=== PATIENT | female | born 1950 ===

== ENCOUNTER 2024-05-29 20:03 | Inpatient (IN) | payer MEDICARE, BC ==
[~2024-05-29] VITALS: Ht 157.5 cm; Wt 45.8 kg
[2024-05-29] MEDS ORDERED: OLAN2.5T3 PO (21:51)
[2024-05-29] MEDS ORDERED: SENN-261 PO (21:51)
[2024-05-29] MEDS ORDERED: HEPA500034 SUBCUT (21:51)
[2024-05-29] MEDS ORDERED: MAG30ORA PO (21:51)
[2024-05-29] MEDS ORDERED: CLON0.1T PO (21:51)
[2024-05-29] MEDS ORDERED: AMLO10TA59 PO (21:51)
[2024-05-29] MEDS ORDERED: MULT-1275 PO (21:51)
[2024-05-29] MEDS ORDERED: FAMO-132 PO (21:51)
[2024-05-29] MEDS ORDERED: ACET650T10 PO (21:51)
[2024-05-29] MEDS ORDERED: MAG HYDROX/AL HYDROX/SIMETH 30 ML LIQUID UDC PO PRN ×2 (22:30→23:00)
[2024-05-29] MEDS ORDERED: CLONIDINE HCL 0.1 MG TABLET PO PRN (22:30)
[2024-05-29] MEDS ORDERED: SENNOSIDES 1 TABLET PO PRN (22:30)
[2024-05-29] MEDS ORDERED: ACETAMINOPHEN 325 MG TABLET PO PRN ×2 (23:00→23:30)
[2024-05-29] MEDS ORDERED: CLONAZEPAM 0.5 MG TABLET PO PRN (23:00)
[2024-05-29] MEDS ORDERED: MAGNESIUM HYDROXIDE 30 ML LIQUID UDC PO PRN (23:00)
[2024-05-29 23:30] VITALS: BP 150/73; TEMP 98.1; O2SAT 98
[2024-05-30 07:39] LABS: ALBUMIN 3.3 g/dL (3.4-5.0); BILIRUBIN,TOTAL 0.4 mg/dL (0.2-1.0); CALCIUM 9.6 mg/dL (8.5-10.1); CREATININE 1.1 mg/dL (0.6-1.3); POTASSIUM 3.9 mmol/L (3.5-5.1); TOTAL PROTEIN, SERUM 6.8 g/dL (6.4-8.2)
[2024-05-30 07:52] VITALS: BP 147/89; TEMP 97.4; O2SAT 98
[2024-05-30] MEDS: MULTIVITAMINS,THERAPEUTIC TABLET PO SCH (08:55)
[2024-05-30] MEDS: AMLODIPINE 10 MG TABLET PO SCH (08:55)
[2024-05-30] MEDS: FAMOTIDINE 20 MG TABLET PO SCH (08:55)
[2024-05-30] MEDS ORDERED: HEPARIN SODIUM,PORCINE 5,000 UNITS/ML VIAL SQ SCH (09:00)
[2024-05-30 16:19] VITALS: BP 128/60; TEMP 97.6; O2SAT 98
[2024-05-30] MEDS: ENSURE ENLIVE (VAN) 240 ML LIQUID PO SCH (17:44)
[2024-05-30 20:06] VITALS: BP 122/53; TEMP 97.8; O2SAT 96
[2024-05-30] MEDS: OLANZAPINE 2.5 MG TABLET PO SCH (21:03)
[2024-05-30] MEDS: MIRTAZAPINE 15 MG TABLET PO SCH (21:03)
[2024-05-30] MEDS: LORAZEPAM 0.5 MG TABLET PO PRN (21:52)
[2024-05-31 07:53] VITALS: BP 134/60; TEMP 98.2; O2SAT 96
[2024-05-31] MEDS: CALCITRIOL 0.25 MCG CAPSULE PO SCH (08:37)
[2024-05-31 16:45] VITALS: BP 135/61; TEMP 98.1; O2SAT 97
[2024-05-31 20:16] VITALS: BP 135/56; TEMP 98.2; O2SAT 98
[2024-06-01 07:47] LABS: *BILIRUBIN,URIN NEGATIVE (NEGATIVE); *BLOOD, URINE NEGATIVE (NEGATIVE); *CLARITY,URINE CLEAR (CLEAR); *COLOR,URINE YELLOW (YELLOW); *KETONES,URINE NEGATIVE (NEGATIVE); *PROTEIN,URINE 1+ (NEGATIVE); *UROBILINOGEN,URINE 0.2 E.U./dl (NORMAL); LEUKOCYTE ESTERASE ,URINE NEGATIVE (NEGATIVE); NITRITE, URINE NEGATIVE (NEGATIVE); PH,URINE 5.5 (5.0-8.0); UGLUCOSE NEGATIVE (NEGATIVE)
[2024-06-01 07:49] VITALS: BP 160/75; TEMP 98; O2SAT 96
[2024-06-01 08:17] LABS: BACTERIA,URINE FEW /HPF (NONE SEEN); RBC,URINE 0-3 /HPF (0-3); SQUAMOUS EPITHELIAL CELL,UR FEW /HPF (NONE SEEN)
[2024-06-01 15:55] VITALS: BP 143/69; TEMP 98; O2SAT 96
[2024-06-01 20:02] VITALS: BP 121/61; TEMP 98.1; O2SAT 96
[2024-06-01] MEDS: MIRTAZAPINE 15 MG TABLET PO SCH (20:53)
[2024-06-02 08:30] VITALS: BP 137/64; TEMP 98; O2SAT 98
[2024-06-02 15:28] VITALS: BP 143/62; TEMP 98; O2SAT 98
[2024-06-02 20:21] VITALS: BP 117/65; TEMP 98.1; O2SAT 97
[2024-06-03 07:55] VITALS: BP 134/64; TEMP 98; O2SAT 98
[2024-06-03 08:25] LABS: BASOPHILS % (AUTO) 0.6 % (0.0-2.0); EOSINOPHILS # (AUTO) 0.1 K/uL (0.0-0.7); EOSINOPHILS % (AUTO) 1.7 % (0.0-7.0); HEMATOCRIT 40.6 % (31.2-41.9); HEMOGLOBIN 13.2 g/dL (10.9-14.3); LYMPHOCYTES # (AUTO) 1.7 K/uL (0.8-4.8); LYMPHOCYTES % (AUTO) 21.8 % (20.5-51.5); MEAN CORPUSCULAR HEMOGLOBIN 27.9 uug (24.7-32.8); MEAN CORPUSCULAR HGB CONC 33 g/dL (32.3-35.6); MEAN CORPUSCULAR VOLUME 85.8 fL (75.5-95.3); MONOCYTES # (AUTO) 0.6 K/uL (0.1-1.30); MONOCYTES % (AUTO) 7.4 % (0.0-11.0); NEUTROPHILS # (AUTO) 5.3 K/uL (1.8-8.9); NEUTROPHILS % (AUTO) 68.5 % (38.5-71.5); PLATELET COUNT (AUTO) 363 K/uL (179-408); RED BLOOD CELL COUNT(AUTO) 4.73 MIL/uL (3.63-4.92); WHITE BLOOD COUNT (AUTO) 7.7 K/uL (3.8-11.8)
[2024-06-03 08:33] LABS: DIFFERENTIAL COMMENT 1
[2024-06-03 08:55] LABS: THYROID STIMULATING HORMONE 1.098 mIU/mL (0.358-3.740)
[2024-06-03 09:16] LABS: ALBUMIN 3.8 g/dL (3.4-5.0); BILIRUBIN,TOTAL 0.4 mg/dL (0.2-1.0); CALCIUM 10.3 mg/dL (8.5-10.1); CREATININE 1.3 mg/dL (0.6-1.3); MAGNESIUM 2.1 mg/dL (1.8-2.4); PHOSPHOROUS 3.8 mg/dL (2.5-4.9); POTASSIUM 3.6 mmol/L (3.5-5.1); TOTAL PROTEIN, SERUM 7.8 g/dL (6.4-8.2)
[2024-06-03 15:23] VITALS: BP 123/62; TEMP 98; O2SAT 98
[2024-06-03 20:17] VITALS: BP 130/64; TEMP 97.9; O2SAT 96
[2024-06-04 07:51] VITALS: BP 121/58; TEMP 97.6; O2SAT 97
[2024-06-04 16:00] VITALS: BP 121/64; TEMP 97.6; O2SAT 97
[2024-06-04 20:00] VITALS: BP 143/60; TEMP 98; O2SAT 97
[2024-06-05 08:07] VITALS: BP 137/70; TEMP 98; O2SAT 98
[2024-06-05] MEDS: BENZTROPINE MESYLATE 0.5 MG TABLET PO SCH (10:24)
[2024-06-05] MEDS ORDERED: diphenhydrAMINE 25 MG CAP PO PRN (11:45)
[2024-06-05 15:27] VITALS: BP 118/61; TEMP 98; O2SAT 98
[2024-06-06 08:29] VITALS: BP 135/72; TEMP 97.8; O2SAT 98
[2024-06-06 17:08] VITALS: BP 136/70; TEMP 97.8; O2SAT 97
[2024-06-06 23:43] VITALS: BP 140/63; TEMP 97.8; O2SAT 95
[2024-06-07 08:40] VITALS: BP 136/69; TEMP 98.4; O2SAT 97
[2024-06-07 10:34] LABS: ALBUMIN 3.7 g/dL (3.4-5.0); BILIRUBIN,TOTAL 0.4 mg/dL (0.2-1.0); CALCIUM 10.2 mg/dL (8.5-10.1); CREATININE 1.1 mg/dL (0.6-1.3); POTASSIUM 3.7 mmol/L (3.5-5.1); TOTAL PROTEIN, SERUM 7.4 g/dL (6.4-8.2)
[2024-06-07 16:03] VITALS: BP 154/70; TEMP 98; O2SAT 97
[2024-06-07 20:15] VITALS: BP 104/63; TEMP 98.1; O2SAT 95
[2024-06-08 07:52] VITALS: BP 135/68; TEMP 98.2; O2SAT 93
[2024-06-08 16:02] VITALS: BP 152/65; TEMP 97.6; O2SAT 100
[2024-06-08] MEDS: PROTEIN SUPPLEMENT (PROSTAT) 30 ML LIQUID PO SCH (17:00)
[2024-06-08 20:36] VITALS: BP 142/66; TEMP 97.8; O2SAT 96
[2024-06-08] MEDS: MIRTAZAPINE 15 MG TABLET PO SCH (21:00)
[2024-06-09 08:46] VITALS: BP 131/67; TEMP 98; O2SAT 98
[2024-06-09] MEDS: SERTRALINE HCL 50 MG TABLET PO SCH (12:51)
[2024-06-09] MEDS: VALACYCLOVIR HCL 500 MG TABLET PO SCH (12:52)
[2024-06-09 15:51] VITALS: BP 118/57; TEMP 98; O2SAT 98
[2024-06-09] MEDS: LIDOCAINE VISCUS 2% 15 ML UDC MM SCH (17:03)
[2024-06-09 20:10] VITALS: BP 130/62; TEMP 97.9; O2SAT 96
[2024-06-10] MEDS: TEMAZEPAM 7.5 MG CAPSULE PO PRN (01:25)
[2024-06-10 07:42] VITALS: BP 134/67; TEMP 98; O2SAT 98
[2024-06-10 08:20] LABS: CALCIUM 10.2 mg/dL (8.5-10.1); CARBON DIOXIDE 26 mmol/L (21-32); CHLORIDE 106 mmol/L (98-107); CREATININE 1.4 mg/dL (0.6-1.3); GLUCOSE 113 mg/dL (74-106); MAGNESIUM 2.3 mg/dL (1.8-2.4); SODIUM SERUM 142 mmol/L (136-145); UREA NITROGEN, BLOOD 57 mg/dL (7-18)
[2024-06-10 15:45] VITALS: BP 130/67; TEMP 98; O2SAT 96
[2024-06-10 20:00] VITALS: BP 140/54; TEMP 96.9; O2SAT 97
[2024-06-11 08:00] VITALS: BP 130/56; TEMP 98; O2SAT 99
[2024-06-11] MEDS: ENSURE ENLIVE (VAN) 240 ML LIQUID PO SCH (10:30)
[2024-06-11] MEDS: VALACYCLOVIR HCL 500 MG TABLET PO SCH (12:30)
[2024-06-11] MEDS: IV LACTATED RINGERS SOLUTION 1,000 ML IV ONE (13:48)
[2024-06-11 15:22] VITALS: BP 112/43; TEMP 98; O2SAT 98
[2024-06-11 20:00] VITALS: BP 103/45; TEMP 98; O2SAT 95
[2024-06-12 08:27] LABS: CALCIUM 9.3 mg/dL (8.5-10.1); CREATININE 1.1 mg/dL (0.6-1.3); MAGNESIUM 1.9 mg/dL (1.8-2.4); POTASSIUM 3.5 mmol/L (3.5-5.1)
[2024-06-12] MEDS: ARIPIPRAZOLE 5 MG TABLET PO SCH (09:00)
[2024-06-12 09:48] VITALS: BP 117/51; TEMP 98; O2SAT 98
[2024-06-12] MEDS: IV LACTATED RINGERS SOLUTION 1,000 ML IV ONE (13:31)
[2024-06-12 16:45] VITALS: BP 131/51; TEMP 97.6; O2SAT 95
[2024-06-12 20:00] VITALS: BP 124/49; TEMP 97.8; O2SAT 95
[2024-06-13 07:55] LABS: BASOPHILS % (AUTO) 0.1 % (0.0-2.0); EOSINOPHILS # (AUTO) 0.1 K/uL (0.0-0.7); EOSINOPHILS % (AUTO) 0.6 % (0.0-7.0); HEMOGLOBIN 13.3 g/dL (10.9-14.3); LYMPHOCYTES # (AUTO) 1.2 K/uL (0.8-4.8); LYMPHOCYTES % (AUTO) 10.5 % (20.5-51.5); MEAN CORPUSCULAR HEMOGLOBIN 27.6 uug (24.7-32.8); MEAN CORPUSCULAR HGB CONC 32 g/dL (32.3-35.6); MEAN CORPUSCULAR VOLUME 85.4 fL (75.5-95.3); MONOCYTES # (AUTO) 0.6 K/uL (0.1-1.30); MONOCYTES % (AUTO) 5.5 % (0.0-11.0); NEUTROPHILS # (AUTO) 9.5 K/uL (1.8-8.9); NEUTROPHILS % (AUTO) 83.3 % (38.5-71.5); PLATELET COUNT (AUTO) 310 K/uL (179-408); WHITE BLOOD COUNT (AUTO) 11.4 K/uL (3.8-11.8)
[2024-06-13 08:03] LABS: CALCIUM 9.7 mg/dL (8.5-10.1); CARBON DIOXIDE 24 mmol/L (21-32); CHLORIDE 106 mmol/L (98-107); CREATININE 1.1 mg/dL (0.6-1.3); GLUCOSE 65 mg/dL (74-106); POTASSIUM 3.8 mmol/L (3.5-5.1); SODIUM SERUM 144 mmol/L (136-145); UREA NITROGEN, BLOOD 29 mg/dL (7-18)
[2024-06-13 08:24] VITALS: BP 137/50; TEMP 97.9; O2SAT 97
[2024-06-13] MEDS: MEGESTROL ACETATE 20 MG TABLET PO SCH (09:29)
[2024-06-13 17:42] VITALS: BP 115/50; TEMP 97.9; O2SAT 97
[2024-06-13 20:00] VITALS: BP 118/56; TEMP 98; O2SAT 95
[2024-06-13 20:04] LABS: *BILIRUBIN,URIN 1+ (NEGATIVE); *BLOOD, URINE NEGATIVE (NEGATIVE); *CLARITY,URINE CLEAR (CLEAR); *COLOR,URINE YELLOW (YELLOW); *KETONES,URINE 3+ (NEGATIVE); *PROTEIN,URINE NEGATIVE (NEGATIVE); *UROBILINOGEN,URINE 0.2 E.U./dl (NORMAL); LEUKOCYTE ESTERASE ,URINE TRACE (NEGATIVE); NITRITE, URINE NEGATIVE (NEGATIVE); PH,URINE 5.5 (5.0-8.0); UGLUCOSE NEGATIVE (NEGATIVE)
[2024-06-13 20:41] LABS: BACTERIA,URINE FEW /HPF (NONE SEEN); RBC,URINE 0-3 /HPF (0-3); SQUAMOUS EPITHELIAL CELL,UR FEW /HPF (NONE SEEN)
[2024-06-14 07:57] VITALS: BP 115/55; TEMP 98.1; O2SAT 96
[2024-06-14 16:45] VITALS: BP 124/57; TEMP 98; O2SAT 97
[2024-06-14 20:43] VITALS: BP 119/56; TEMP 98.1; O2SAT 96
[2024-06-15 10:17] VITALS: BP 110/53; TEMP 98.6; O2SAT 98
[2024-06-15 19:54] VITALS: BP 130/60; TEMP 98.1; O2SAT 95
[2024-06-15] MEDS: MIRTAZAPINE 15 MG TABLET PO SCH (20:14)
[2024-06-16 08:09] VITALS: BP 120/60; TEMP 98; O2SAT 96
[2024-06-16 08:12] LABS: CALCIUM 9.7 mg/dL (8.5-10.1); CARBON DIOXIDE 27 mmol/L (21-32); CHLORIDE 106 mmol/L (98-107); GLUCOSE 89 mg/dL (74-106); MAGNESIUM 1.8 mg/dL (1.8-2.4); POTASSIUM 3.4 mmol/L (3.5-5.1); SODIUM SERUM 143 mmol/L (136-145); UREA NITROGEN, BLOOD 28 mg/dL (7-18)
[2024-06-16] MEDS: POTASSIUM CHLORIDE 20 MEQ TAB.PRT.SR PO ONE (09:55)
[2024-06-16] MEDS: CEphaleXIN 250 MG CAPSULE PO SCH (15:04)
[2024-06-16 15:32] VITALS: BP 119/57; TEMP 98; O2SAT 96
[2024-06-16] MEDS ORDERED: ARIP5TAB10 PO (18:23)
[2024-06-16] MEDS ORDERED: CALC0.253 PO (18:24)
[2024-06-16] MEDS ORDERED: LACT-84 PO (18:25)
[2024-06-16] MEDS ORDERED: CEPH250C PO (18:25)
[2024-06-16] MEDS ORDERED: LORA0.5T48 PO (18:26)
[2024-06-16] MEDS ORDERED: MEGE20TA4 PO (18:27)
[2024-06-16] MEDS ORDERED: MAGN400O6 PO (18:27)
[2024-06-16] MEDS ORDERED: MIRT-119 PO (18:28)
[2024-06-16] MEDS ORDERED: AMIN30LI25 PO (18:30)
[2024-06-16] MEDS ORDERED: TEMA7.5C PO (18:31)
[2024-06-16] MEDS ORDERED: SERT25TA PO (18:31)
[2024-06-16] MEDS ORDERED: DIPH25CA83 PO (18:32)
== END 2024-06-16 16:51 | disposition short-term general hospital (02) | DRG 885 ==
LOC: ER 20:14 → GPS 22:55
PROVIDERS: ADMIT Psychiatry & Neurology Psychiatry; ATTEND Internal Medicine
DX: F33.3 Major depressive disorder, recurrent, severe with psychotic symptoms (principal); N18.30 Chronic kidney disease, stage 3 unspecified; N17.0 Acute kidney failure with tubular necrosis; R45.851 Suicidal ideations; E44.1 Mild protein-calorie malnutrition; Z68.1 Body mass index [BMI] 19.9 or less, adult; N39.0 Urinary tract infection, site not specified; F03.94 Unspecified dementia, unspecified severity, with anxiety; F03.918 Unspecified dementia, unspecified severity, with other behavioral disturbance; I12.9 Hypertensive chronic kidney disease with stage 1 through stage 4 chronic kidney disease, or unspecified chronic kidney disease; N18.2 Chronic kidney disease, stage 2 (mild); R62.7 Adult failure to thrive; M15.9 Polyosteoarthritis, unspecified; R21 Rash and other nonspecific skin eruption; E78.5 Hyperlipidemia, unspecified; Z79.899 Other long term (current) drug therapy; R13.10 Dysphagia, unspecified; K11.7 Disturbances of salivary secretion; Z86.59 Personal history of other mental and behavioral disorders
CPT/HCPCS: 36415; 71045; 83735; 84100; 84443; 85025; C1758; J7120

== ENCOUNTER 2024-06-16 17:13 | Inpatient (IN) | payer MEDICARE, BC ==
[~2024-06-16] VITALS: Ht 157.5 cm; Wt 46.7 kg
[~2024-06-16 17:13] MED LIST: ACET650T10 PO; AMLO10TA59 PO; CLON0.1T PO; MAG30ORA PO; MULT-1275 PO; SENN-261 PO
[2024-06-16 17:59] VITALS: BP 132/61; TEMP 97.9; O2SAT 96
[2024-06-16] MEDS ORDERED: ARIP5TAB10 PO (18:23)
[2024-06-16] MEDS ORDERED: CALC0.253 PO (18:24)
[2024-06-16] MEDS ORDERED: CEPH250C PO (18:25)
[2024-06-16] MEDS ORDERED: LACT-84 PO (18:25)
[2024-06-16] MEDS ORDERED: LORA0.5T48 PO (18:26)
[2024-06-16] MEDS ORDERED: MEGE20TA4 PO (18:27)
[2024-06-16] MEDS ORDERED: MAGN400O6 PO (18:27)
[2024-06-16] MEDS ORDERED: MIRT-119 PO (18:28)
[2024-06-16] MEDS ORDERED: AMIN30LI25 PO (18:30)
[2024-06-16] MEDS ORDERED: SERT25TA PO (18:31)
[2024-06-16] MEDS ORDERED: TEMA7.5C PO (18:31)
[2024-06-16] MEDS ORDERED: DIPH25CA83 PO (18:32)
[2024-06-16] MEDS ORDERED: TEMAZEPAM 7.5 MG CAPSULE PO PRN (19:00)
[2024-06-16] MEDS ORDERED: ONDANSETRON 4 MG/2 ML VIAL IV PRN (19:00)
[2024-06-16] MEDS ORDERED: CEphaleXIN 250 MG CAPSULE PO PRN (19:00)
[2024-06-16] MEDS ORDERED: Medication Not On Formulary EA (Amino Acids/Protein Hydrolys (Prosource Liquid) 30 ML) PO SCH (19:00)
[2024-06-16] MEDS ORDERED: diphenhydrAMINE 25 MG CAP PO PRN (19:00)
[2024-06-16] MEDS ORDERED: COMPLEAT MODIFIED FORMULA 1000 ML LIQUID PO SCH (19:00)
[2024-06-16] MEDS ORDERED: ACETAMINOPHEN 325 MG TABLET PO PRN (19:00)
[2024-06-16] MEDS: MEGESTROL ACETATE 20 MG TABLET PO SCH (19:00)
[2024-06-16] MEDS ORDERED: SENNOSIDES 1 TABLET PO PRN (19:00)
[2024-06-16 20:00] VITALS: BP 121/56; TEMP 98.3; O2SAT 96
[2024-06-16] MEDS: MIRTAZAPINE 15 MG TABLET PO SCH (21:00)
[2024-06-17] MEDS: IV NS 1000 ML 1,000 ML IV PRN (00:04)
[2024-06-17] MEDS: PROTEIN SUPPLEMENT (PROSTAT) 30 ML LIQUID PO SCH (08:00)
[2024-06-17] MEDS: SERTRALINE HCL 50 MG TABLET PO SCH (08:58)
[2024-06-17] MEDS: MULTIVITAMINS,THERAPEUTIC TABLET PO SCH (08:59)
[2024-06-17] MEDS: ENSURE ENLIVE (VAN) 240 ML LIQUID PO SCH (08:59)
[2024-06-17] MEDS: AMLODIPINE 10 MG TABLET PO SCH (08:59)
[2024-06-17] MEDS: ARIPIPRAZOLE 5 MG TABLET PO SCH (08:59)
[2024-06-17] MEDS: CALCITRIOL 0.25 MCG CAPSULE PO SCH (09:37)
[2024-06-17 09:47] LABS: HEMATOCRIT 38.9 % (31.2-41.9); MEAN CORPUSCULAR HEMOGLOBIN 28.4 uug (24.7-32.8); MEAN CORPUSCULAR HGB CONC 33 g/dL (32.3-35.6); RED BLOOD CELL COUNT(AUTO) 4.58 MIL/uL (3.63-4.92); RED CELL DISTRIBUTION WIDTH 14.3 % (12.3-17.7); WHITE BLOOD COUNT (AUTO) 6.6 K/uL (3.8-11.8)
[2024-06-17 09:48] LABS: BASOPHILS % (AUTO) 0.2 % (0.0-2.0); EOSINOPHILS # (AUTO) 0.1 K/uL (0.0-0.7); EOSINOPHILS % (AUTO) 1.5 % (0.0-7.0); LYMPHOCYTES # (AUTO) 1.5 K/uL (0.8-4.8); LYMPHOCYTES % (AUTO) 22.1 % (20.5-51.5); MONOCYTES # (AUTO) 0.5 K/uL (0.1-1.30); NEUTROPHILS # (AUTO) 4.6 K/uL (1.8-8.9); NEUTROPHILS % (AUTO) 69.2 % (38.5-71.5); PLATELET COUNT (AUTO) 363 K/uL (179-408)
[2024-06-17 12:10] VITALS: BP 102/46; TEMP 97.7; O2SAT 97
[2024-06-17 13:00] LABS: CARBON DIOXIDE 26 mmol/L (21-32); CHLORIDE 109 mmol/L (98-107); GLUCOSE 92 mg/dL (74-106); POTASSIUM 3.8 mmol/L (3.5-5.1); SODIUM SERUM 145 mmol/L (136-145)
[2024-06-17 13:01] LABS: CALCIUM 9.8 mg/dL (8.5-10.1); CREATININE 1.1 mg/dL (0.6-1.3); MAGNESIUM 1.7 mg/dL (1.8-2.4); UREA NITROGEN, BLOOD 31 mg/dL (7-18)
[2024-06-17 15:21] VITALS: BP 110/70; TEMP 97.9; O2SAT 94
[2024-06-17] MEDS: MAGNESIUM OXIDE 400 MG TABLET PO ONE (15:51)
[2024-06-17 17:10] LABS: THYROID STIMULATING HORMONE 1.448 mIU/mL (0.358-3.740)
[2024-06-17 20:00] VITALS: BP 103/47; TEMP 98.1; O2SAT 96
[2024-06-18 06:38] VITALS: BP 128/55; TEMP 97.9; O2SAT 95
[2024-06-18 06:43] LABS: BASOPHILS % (AUTO) 0.4 % (0.0-2.0); EOSINOPHILS # (AUTO) 0.2 K/uL (0.0-0.7); EOSINOPHILS % (AUTO) 2.4 % (0.0-7.0); HEMATOCRIT 34.5 % (31.2-41.9); HEMOGLOBIN 11.4 g/dL (10.9-14.3); LYMPHOCYTES # (AUTO) 1.8 K/uL (0.8-4.8); LYMPHOCYTES % (AUTO) 27.7 % (20.5-51.5); MEAN CORPUSCULAR HEMOGLOBIN 28.4 uug (24.7-32.8); MEAN CORPUSCULAR HGB CONC 33 g/dL (32.3-35.6); MEAN CORPUSCULAR VOLUME 85.9 fL (75.5-95.3); MONOCYTES # (AUTO) 0.4 K/uL (0.1-1.30); MONOCYTES % (AUTO) 6.9 % (0.0-11.0); NEUTROPHILS % (AUTO) 62.6 % (38.5-71.5); PLATELET COUNT (AUTO) 307 K/uL (179-408); RED BLOOD CELL COUNT(AUTO) 4.01 MIL/uL (3.63-4.92); RED CELL DISTRIBUTION WIDTH 14.2 % (12.3-17.7); WHITE BLOOD COUNT (AUTO) 6.3 K/uL (3.8-11.8)
[2024-06-18 06:52] LABS: DIFFERENTIAL COMMENT 1
[2024-06-18 06:58] LABS: CALCIUM 9.3 mg/dL (8.5-10.1); PHOSPHOROUS 2.5 mg/dL (2.5-4.9)
[2024-06-18 13:27] VITALS: BP 121/58; TEMP 97.7; O2SAT 94
[2024-06-18] MEDS: CEphaleXIN 250 MG CAPSULE PO SCH (14:23)
[2024-06-18] MEDS: IV 1/2NS 1000 ML 1,000 ML IV PRN (16:17)
[2024-06-18 16:29] VITALS: BP 117/54; TEMP 97.9; O2SAT 96
[2024-06-18 20:00] VITALS: BP 128/63; TEMP 97.8; O2SAT 96
[2024-06-19 05:37] VITALS: BP 123/55; TEMP 97.6; O2SAT 99
[2024-06-19 06:00] VITALS: BP 148/93; TEMP 98.6; O2SAT 96
[2024-06-19 06:56] LABS: BASOPHILS % (AUTO) 0.3 % (0.0-2.0); EOSINOPHILS # (AUTO) 0.1 K/uL (0.0-0.7); EOSINOPHILS % (AUTO) 1.9 % (0.0-7.0); HEMATOCRIT 36.3 % (31.2-41.9); HEMOGLOBIN 12.2 g/dL (10.9-14.3); LYMPHOCYTES # (AUTO) 1.8 K/uL (0.8-4.8); LYMPHOCYTES % (AUTO) 23.4 % (20.5-51.5); MEAN CORPUSCULAR HEMOGLOBIN 28.4 uug (24.7-32.8); MEAN CORPUSCULAR HGB CONC 34 g/dL (32.3-35.6); MEAN CORPUSCULAR VOLUME 84.3 fL (75.5-95.3); MONOCYTES # (AUTO) 0.5 K/uL (0.1-1.30); MONOCYTES % (AUTO) 5.9 % (0.0-11.0); NEUTROPHILS # (AUTO) 5.2 K/uL (1.8-8.9); NEUTROPHILS % (AUTO) 68.5 % (38.5-71.5); PLATELET COUNT (AUTO) 313 K/uL (179-408); RED CELL DISTRIBUTION WIDTH 14.2 % (12.3-17.7); WHITE BLOOD COUNT (AUTO) 7.6 K/uL (3.8-11.8)
[2024-06-19 07:10] LABS: DIFFERENTIAL COMMENT 1
[2024-06-19 07:17] LABS: CALCIUM 9.4 mg/dL (8.5-10.1); CREATININE 0.8 mg/dL (0.6-1.3); MAGNESIUM 1.7 mg/dL (1.8-2.4); PHOSPHOROUS 2.8 mg/dL (2.5-4.9); POTASSIUM 3.3 mmol/L (3.5-5.1)
[2024-06-19 11:45] VITALS: BP 121/55; TEMP 97.5; O2SAT 98
[2024-06-19] MEDS: MAGNESIUM OXIDE 400 MG TABLET PO ONE (12:16)
[2024-06-19] MEDS: POTASSIUM CHLORIDE 20 MEQ TAB.PRT.SR PO ONE (12:16)
[2024-06-19] MEDS: POTASSIUM CHLORIDE 50 ML IV SCH (13:08)
[2024-06-19] MEDS: MAGNESIUM SULFATE/D5W 100 ML IV SCH (13:08)
[2024-06-19 15:42] VITALS: BP 116/52; TEMP 97.2; O2SAT 97
[2024-06-19 20:11] VITALS: BP 108/51; TEMP 98.4; O2SAT 96
[2024-06-20 04:00] VITALS: BP 121/67; TEMP 98.3; O2SAT 97
[2024-06-20 06:56] LABS: BASOPHILS % (AUTO) 0.4 % (0.0-2.0); EOSINOPHILS # (AUTO) 0.1 K/uL (0.0-0.7); HEMATOCRIT 33.8 % (31.2-41.9); HEMOGLOBIN 11.2 g/dL (10.9-14.3); LYMPHOCYTES # (AUTO) 1.7 K/uL (0.8-4.8); LYMPHOCYTES % (AUTO) 23.8 % (20.5-51.5); MEAN CORPUSCULAR HGB CONC 33 g/dL (32.3-35.6); MEAN CORPUSCULAR VOLUME 84.2 fL (75.5-95.3); MONOCYTES # (AUTO) 0.4 K/uL (0.1-1.30); MONOCYTES % (AUTO) 6.1 % (0.0-11.0); NEUTROPHILS # (AUTO) 4.9 K/uL (1.8-8.9); NEUTROPHILS % (AUTO) 67.7 % (38.5-71.5); PLATELET COUNT (AUTO) 326 K/uL (179-408); RED BLOOD CELL COUNT(AUTO) 4.02 MIL/uL (3.63-4.92); RED CELL DISTRIBUTION WIDTH 14.2 % (12.3-17.7); WHITE BLOOD COUNT (AUTO) 7.3 K/uL (3.8-11.8)
[2024-06-20 07:03] LABS: CALCIUM 8.6 mg/dL (8.5-10.1); CARBON DIOXIDE 27 mmol/L (21-32); CHLORIDE 106 mmol/L (98-107); CREATININE 0.9 mg/dL (0.6-1.3); GLUCOSE 87 mg/dL (74-106); PHOSPHOROUS 2.7 mg/dL (2.5-4.9); POTASSIUM 3.5 mmol/L (3.5-5.1); SODIUM SERUM 139 mmol/L (136-145); UREA NITROGEN, BLOOD 15 mg/dL (7-18)
[2024-06-20 07:04] LABS: DIFFERENTIAL COMMENT 1
[2024-06-20] MEDS ORDERED: PROT30LI PO (11:52)
[2024-06-20] MEDS ORDERED: CEPH250C PO (11:52)
[2024-06-20 12:00] VITALS: BP 122/56; TEMP 98.4; O2SAT 96
== END 2024-06-20 15:45 | DRG 689 ==
LOC: MEDSURG3 17:13
PROVIDERS: ADMIT Nurse Practitioner Acute Care; ATTEND Nurse Practitioner Acute Care
DX: N39.0 Urinary tract infection, site not specified (principal); G93.41 Metabolic encephalopathy; N17.0 Acute kidney failure with tubular necrosis; Z68.1 Body mass index [BMI] 19.9 or less, adult; E44.1 Mild protein-calorie malnutrition; F33.3 Major depressive disorder, recurrent, severe with psychotic symptoms; R45.851 Suicidal ideations; R62.7 Adult failure to thrive; E78.5 Hyperlipidemia, unspecified; M15.9 Polyosteoarthritis, unspecified; I12.9 Hypertensive chronic kidney disease with stage 1 through stage 4 chronic kidney disease, or unspecified chronic kidney disease; N18.30 Chronic kidney disease, stage 3 unspecified; Z79.899 Other long term (current) drug therapy; R21 Rash and other nonspecific skin eruption; B96.89 Other specified bacterial agents as the cause of diseases classified elsewhere; F25.9 Schizoaffective disorder, unspecified
CPT/HCPCS: 36415; 70450; 83735; 83921; 84100; 84443; 85025; 97535-GO-CO; A4663; G0378; J3475; J3480; J7040